=== PATIENT | male | born 1950 | race Caucasian/White ===

== ENCOUNTER 2020-01-05 16:47 | Inpatient (IN) | payer OTHER ==
[~2020-01-05 16:47] MED LIST: Iopamidol-370 76% 500 ML 1 ML ONE
[2020-01-05 17:21] LABS: #Basophils 0.1 thou/uL (0.0-0.2); #Eosinphils 0.2 thou/uL (0.0-0.7); #Lymphocytes 4.6 thou/uL (1.20-3.40); #Monocytes 0.8 thou/uL (0.11-0.59); #Neutrophils 7.9 thou/uL (1.40-6.50); %Basophils 0.6 % (0.0-1.0); %Eosinophils 1.7 % (0.0-10.0); %Lymphocytes 33.8 % (21.0-51.0); %Monocytes 5.7 % (0.0-10.0); %Neutrophils 58.3 % (42.0-75.0); Hemoglobin 15.5 g/dL (14.0-18.0); Mean Corpuscular HGB CONC 33.4 g/dL (32.0-36.0); Mean Corpuscular Hemoglobin 32.3 pg (27.0-31.0); Mean Corpuscular Volume 96.7 fL (78.0-98.0); Mean Platelet Volume 6.9 fL (7.4-10.4); Platelet Count 385 thou/uL (130-400); RBC Distribution Width 13.2 % (11.5-14.5); White Blood Cell (WBC) Count 13.5 thou/uL (4.8-10.8)
[2020-01-05] MEDS ORDERED: Morphine 4 MG/ML VIAL ONE ×2 (17:41→19:49)
[2020-01-05] MEDS ORDERED: Ondansetron PF 4 MG/2 ML Vial ONE (17:41)
[2020-01-05 17:45] LABS: ALT (SGPT) 10 U/L (8-55); AST (SGOT) 11 U/L (5-34); Albumin 4.4 g/dL (3.4-4.8); Alkaline Phosphatase 125 U/L (40-110); Anion Gap 13 mmol/L (10-20); BUN (Urea Nitrogen) 9 mg/dL (8.4-25.7); Bilirubin, Total 0.4 mg/dL (0.2-1.2); CK (CPK) 46 U/L (30-200); Calc. Creatinine Clearance 0 mL/min (70-130); Calcium 9.5 mg/dL (7.8-10.44); Carbon Dioxide 24 mmol/L (23-31); Chloride 105 mmol/L (98-107); Estimated GFR-MDRD 88; Globulin 3.3 g/dL (2.4-3.5); Glucose 103 mg/dL (80-115); Lipase 220 U/L (8-78); Protein, Total 7.7 g/dL (5.8-8.1); Sodium 139 mmol/L (136-145)
--- NOTE | 2020-01-05 17:54 | RAD ---
PORTABLE UPRIGHT FRONTAL CHEST RADIOGRAPH: Date: 01/05/2020 COMPARISON: 02/06/2013. HISTORY: Chest pain. FINDINGS: Stable increased linear interstitial density and pulmonary hyperinflation. No pneumothorax, pleural f luid, focal consolidation, or alveolar edema. IMPRESSION: No significant interval change. POS: TEO
--- NOTE | 2020-01-05 19:00 | CT ---
CT PULMONARY ANGIOGRAPH WITH IV CONTRAST AND 3D MIP RECONSTRUCTIONS: 01/05/20 PROVIDED CLINICAL HISTORY: Chest pain. FINDINGS: There is no evidence for central or segmental pulmonary embolus. Extensive atherosclerosis is demonst rated including coronary calcium. Evaluation of the lung parenchyma is limited by patient respiratory motion. No focal consolidation, pleural fluid, or pneumothorax apparent. The airway appears patent and of normal caliber. There is partially visualized fat stranding changes seen about the pancreatic body. There is reflux o f contrast material into the hepatic veins. Numerous calcified splenic granulomata are seen. Exophyt ic left renal hypodensity is incompletely characterized in the absence of IV contrast but statistical ly reflects a cyst. The osseous structures demonstrate no concerning lytic or blastic lesions. IMPRESSION: 1. No evidence for central or segmental pulmonary embolus. 2. Findings compatible with acute pancreatitis. 3. Atherosclerosis including coronary calcium. POS: SAMEERA
[2020-01-05 20:09] LABS: Bilirubin Negative (Negative); Blood, Urine Negative (Negative); Clarity Clear (Clear); Glucose, Urine (Dipstick) Normal (Negative); Ketone, Urine Negative (Negative); Leukocyte Negative Leu/uL (Negative); Nitrite Negative (Negative); Protein, Urine (Dipstick) Negative (Neg-Trace); Urobilinogen Normal mg/dL (Less than 2); pH, Urine 7.5 (5.0-9.0)
[2020-01-05 20:10] LABS: Specific Gravity, Urine 1.045 (1.002-1.036)
--- NOTE | 2020-01-05 20:31 | CT ---
CT OF THE ABDOMEN AND PELVIS: 01/05/20 COMPARISON: None. HISTORY: Epigastric pain. TECHNIQUE: Axial CT imaging at 5 mm intervals from the lung bases through the pubic symphysis with IV contrast. Coronal and sagittal reformatted imaging obtained. FINDINGS: Calcified granulomata are noted within the right lung base and throughout the spleen. No free intrape ritoneal air is noted. Coronary arterial calcification is present. There is an ill-defined hyperenhancing focus within the peripheral aspect of the right lobe of the li zac anteriorly, likely on the basis of a vascular phenomenon. There is a focal area of branching hypodensity within the anterior aspect of the liver, which could r epresent a small focal area of biliary dilatation. The gallbladder appears grossly unremarkable. The pancreas appears ill-defined with pancreatic ductal dilatation in its mid portion and distal port ion, including the pancreatic tail. In the region of the pancreatic body, there is a vague hypodensit y suspicious for a pancreatic mass, best seen on axial image 26 measuring 2.4 cm in transverse dimens ion. There is peripancreatic fat stranding. Bilateral adrenal glands demonstrate no acute findings. There is a small hypodense lesion within the lower pole of the left kidney anteriorly measuring 8 mm, too small to characterize. There is a exophy tic lesion emanating from the lateral left renal mid pole with Hounsfield units of approximately 24, greater than that expected for a simple cyst. This lesion measures 3.7 cm in transverse dimension. There is small volume free fluid within the pelvis. Limited evaluation of the bowel demonstrates no evidence for inflammatory change. The appendix appear s grossly unremarkable. There is extensive atherosclerotic disease involving the abdominal aorta and its branches with multif ocal eccentric noncalcified plaque within the distal thoracic aorta and the proximal abdominal aorta. At the axial level of the diaphragmatic hiatus, the abdominal aorta demonstrates aneurysmal dilatati on measuring 3.9 x 4.1 cm. the infrarenal abdominal aorta demonstrates aneurysmal dilatation measurin g approximately 3.4 x 3.3 cm on axial image 38 and further distally the abdominal aorta measures 3.5 x 3.4 cm just proximal to the bifurcation. No pelvic retroperitoneal or mesenteric lymphadenopathy is noted. Review of the osseous structures demonstrates no worrisome lytic or blastic bone lesions. The re are age indeterminate fractures of the imaged spine which includes anterior wedge compression frac ture at T9, T11, T12, and L1 as well as the superior end plate fracture of L3. IMPRESSION: 1. Vague hypodense lesion in the mid body of the pancreas with adjacent ductal dilatation of the body and tail of the pancreas, suspicious for pancreatic neoplasm. This is closely approximating the superior mesenteric vein and the common hepatic artery. The pancreas just to the left of this is ill -defined and there is peripancreatic fat stranding which could signify superimposed pancreatitis or m alignancy extending into the adjacent peripancreatic fat. 2. Low density lesion within the left kidney, incompletely assessed on this examination. Follow- up ultrasound advised. 3. Extensive atherosclerotic disease with multifocal abdominal aortic aneurysm. 4. Numerous age indeterminate spinal fractures as detailed above. Results called to Dr. Aragon at 6:39 p.m. on 01/05/20. Code SHELBIE POS: TEO
[2020-01-05 21:23] LABS: Lactic Acid 0.9 mmol/L (0.5-2.2)
[2020-01-05 21:27] LABS: CRP (Inflammatory) 0.85 mg/dL (= or < 0.5); Magnesium 1.6 mg/dL (1.6-2.6)
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
[2020-01-05] MEDS: Lactated Ringer's 1,000 ML IV SCH (21:56)
[2020-01-05 22:06] VITALS: BMI 22.4
[2020-01-05] MEDS ORDERED: Ondansetron PF 4 MG/2 ML Vial IVP PRN (22:56)
[2020-01-05] MEDS ORDERED: Ondansetron ODT 4 MG TAB PO PRN (22:56)
[2020-01-06] MEDS: Lactated Ringer's 1,000 ML IV SCH ×4 (02:57→17:45)
[2020-01-06] MEDS ORDERED: Electrolyte Replacement Protoc 1 EACH EACH FS SCH (03:33)
[2020-01-06] MEDS ORDERED: Potassium Chloride 20 MEQ TAB PO SCH (03:45)
[2020-01-06] MEDS ORDERED: Magnesium 2 GM/50 ML 2 GM in Premix Bag 1 BAG IVPB SCH (04:30)
[2020-01-06 05:53] LABS: #Basophils 0.1 thou/uL (0.0-0.2); #Eosinphils 0.3 thou/uL (0.0-0.7); #Monocytes 0.8 thou/uL (0.11-0.59); #Neutrophils 5.6 thou/uL (1.40-6.50); %Basophils 0.7 % (0.0-1.0); %Eosinophils 3.1 % (0.0-10.0); %Lymphocytes 36.9 % (21.0-51.0); %Monocytes 7.7 % (0.0-10.0); %Neutrophils 51.6 % (42.0-75.0); Hemoglobin 13.5 g/dL (14.0-18.0); Mean Corpuscular HGB CONC 32.7 g/dL (32.0-36.0); Mean Corpuscular Hemoglobin 31.7 pg (27.0-31.0); Mean Platelet Volume 7.1 fL (7.4-10.4); Platelet Count 337 thou/uL (130-400); RBC Distribution Width 13.3 % (11.5-14.5); Red Blood Cell (RBC) Count 4.25 mill/uL (4.70-6.10); White Blood Cell (WBC) Count 10.9 thou/uL (4.8-10.8)
[2020-01-06 06:14] LABS: ALT (SGPT) 8 U/L (8-55); AST (SGOT) 9 U/L (5-34); Albumin 3.5 g/dL (3.4-4.8); Alkaline Phosphatase 105 U/L (40-110); Anion Gap 11 mmol/L (10-20); BUN (Urea Nitrogen) 5 mg/dL (8.4-25.7); Bilirubin, Total 0.4 mg/dL (0.2-1.2); Calc. Creatinine Clearance 103 mL/min (70-130); Calcium 8.5 mg/dL (7.8-10.44); Carbon Dioxide 21 mmol/L (23-31); Chloride 108 mmol/L (98-107); Estimated GFR-MDRD Greater than 90; Globulin 2.7 g/dL (2.4-3.5); Glucose 116 mg/dL (80-115); Potassium 3.1 mmol/L (3.5-5.1); Protein, Total 6.2 g/dL (5.8-8.1); Sodium 137 mmol/L (136-145); Triglycerides 126 mg/dL (Less than 150)
[2020-01-06] MEDS: Enoxaparin Sodium 40 MG/0.4 ML SYRINGE SC SCH (07:56)
[2020-01-06] MEDS: Morphine 2 MG/ML VIAL SLOW IVP PRN (11:00)
[2020-01-06 12:02] LABS: SARS-CoV-2 MS2 Positive; SARS-CoV-2 N Gene Negative; SARS-CoV-2 S Gene Negative; SARS-CoV-2 by NAA Not Detected (NotDetected); SARS-CoV-2 orf1ab Negative
--- NOTE | 2020-01-06 12:38 | PDOC.HOSPP ---
- Subjective Encounter Date: 01/06/20 Encounter Time: 07:00 Subjective: Pt seen for follow-up regarding pancreatic mass. He denies fevers or chills. Reports epigastric pain is better. - Objective Vital Signs & Weight: Vital Signs (12 hours) Temp Pulse Resp BP Pulse Ox 01/06/20 10:00 97.8 F 67 16 154/79 H 99 01/06/20 08:00 97.8 F 67 16 154/79 H 99 01/06/20 07:19 97.9 F 65 18 133/73 97 01/06/20 04:43 97.4 F L 60 16 128/76 93 L 01/06/20 00:47 97.8 F 57 L 16 126/62 95 Weight Admit Weight 156 lb 3.2 oz Weight 156 lb 3.2 oz I&O: 01/05/20 01/06/20 01/07/20 06:59 06:59 06:59 Intake Total 2900 Output Total 2350 Balance 550 Result Diagrams: 01/06/20 05:11 01/06/20 05:11 Additional Labs: I reviewed patient's labs and [facility] Hospitalist ROS - Review of Systems Cardiovascular: denies: chest pain, palpitations, orthopnea, paroxysmal noc. dyspnea, edema, light headedness Gastrointestinal: reports: nausea, abdominal pain. denies: vomiting, diarrhea, constipation, melena, hematochezia - Medication Medications: Active Medications Generic Name Dose Route Start Last Admin Trade Name Freq PRN Reason Stop Dose Admin Enoxaparin Sodium 40 mg 01/06/20 09:00 01/06/20 07:56 Enoxaparin Sodium 40 Mg/0.4 Ml Syringe SC 40 mg 09 BEN Administration Lactated Ringer's 1,000 mls @ 200 mls/hr 01/05/20 20:45 01/06/20 11:16 Lactated Ringer's IV 1,000 mls .Q5H BEN Administration Morphine Sulfate 2 mg 01/06/20 10:49 01/06/20 11:00 Morphine 2 Mg/Ml Vial SLOW IVP 2 mg Q4H PRN Administration Moderate Pain (4-6) - Exam General Appearance: awake alert Eye: anicteric sclera ENT: normocephalic atraumatic Neck: supple Heart: RRR Respiratory: CTAB Gastrointestinal: soft, non-tender, no guarding, no rigidity, tender to palp ation Extremities: no cyanosis Skin: no rashes Psychiatric: normal affect, normal behavior Hosp A/P - Plan - Plan (2) Pancreatic mass Status: Acute (1) Acute pancreatitis Code(s): K85.90 - ACUTE PANCREATITIS WITHOUT NECROSIS OR INFECTION, UNSP Statu s: Acute (4) Hypokalemia Code(s): E87.6 - HYPOKALEMIA Status: Acute (5) Hypertension Code(s): I10 - ESSENTIAL (PRIMARY) HYPERTENSION Status: Chronic (6) Hyperlipidemia Code(s): E78.5 - HYPERLIPIDEMIA, UNSPECIFIED Status: Chronic (7) Post traumatic stress disorder (PTSD) Code(s): F43.10 - POST-TRAUMATIC STRESS DISORDER, UNSPECIFIED Status: Chronic (8) Hypothyroidism Code(s): E03.9 - HYPOTHYROIDISM, UNSPECIFIED Status: Chronic - Plan Plan: Acute pancreatitis: 69M hx of CAD, hypothyroidism, HTN, HLD, PTSD who presents with 3 weeks of subacute epigastric pain found to have acute pancreatitis. Lipase elevated to 220. CT a/p showed acute pancreatitis with fat-stranding as well as a pancreatic mass concerning for malignancy. LFTs show elevated alk phos to 125. AST/ALT /. T. cheryl 0.4. Pt denies history of gallstones or etoh use. HD stable. Continue IV fluids and PRN IV morphine. PLAN: -IVF @ 200cc/hr -NPO, may start clears in am -Pain control with morphine -RUQUS to evaluate for stone -Igg 1-4, Triglycerides Pancreatic Mass: CT a/p showed signs of acute pancreatitis with fat stranding as well as a 2.4 cm mass. Spleen with calcified granulomas - question if these are microemboli. Given pt's early satiety, unintentional weight loss, and family hx of pancreatic cancer concern for malignancy. Will consult GI. PLAN: -GI consult Chest pain: P/w chest/epigastric pain for 3 weeks. Most likely 2/2 pancreatitis, however pt has history of prior IA's with cardiac stents. Initial troponin 0.01. EKG showed non-specific t-wave changes. Will trend troponins. PLAN: -Trend troponin -Telemetry -ASA Leukocytosis: WBC elevated to 13.5. Likely reactive. Lactic acid 0.9. Pt afebrile, VSS. UA negative. CT chest with no signs of pneumonia. Will continue to monitor. PLAN: -Trend WBCs, fever curve -Monitor for signs of infection Hypokalemia: Potassium 3.0 on admission. Will replete and continue to monitor. AAA: CT a/p revealed a 3.9 x 4.1 CM AAA. Patient will need outpatient follow-up for continued monitoring. Hypothyroidism: Continue home levothyroxine once dose confirmed PTSD/Depression: Continue home sertraline 100 mg. Mood is stable. HTN: Continue home losartan and diltiazem once dosages confirmed. DVT prophylaxis: lovenox FULL CODE
[2020-01-06] MEDS ORDERED: Sodium Chloride 0.9% 1,000 ML IV SCH (12:45)
--- NOTE | 2020-01-06 19:56 | CON ---
DATE OF CONSULTATION: 01/06/2020 REASON FOR CONSULTATION: Pancreatitis, abnormal CAT scan. HISTORY OF PRESENT ILLNESS: Mr. Brown is a 69-year-old, who came to the hospital last night for upper abdominal pain and chest pain. He reports that the pain has come and gone over the past three weeks, radiating to the upper chest and left lower chest. He tried taking his nitroglycerin at home which he has, which he usually takes a couple of nitroglycerin and his chest pain would go away, but he had taken 7 and it he did not improve. Nothing really makes the pain better. Often when he eats, he feels a little bit of discomfort and he has not been having much of an appetite recently. [facility], [facility] with an E[facility] and he was told it did not appear to be cardiac pain. He has had no nausea or vomiting. He denies any shortness of breath or dyspnea on exertion. There is no fever or chills. For the heart disease, he had a stent placed in 2011. He does take nitroglycerin occasionally for chest discomfort, but used to go away very quickly. He has also had a weight loss of 25 to 30 pounds over the past 3 to 4 months. He reports decreased appetite. He does see some blood in his stool, streaks at times. He has had colonoscopies several over the past years, most recently 4 years ago with some polyps removed. This was performed at the [facility] in [place]. PAST MEDICAL HISTORY: Coronary artery disease with previous stent placement at the [facility]. Reports history of mild heart failure, hypertension, hyperlipidemia, hypothyroidism, reflux, polyps, PTSD, anxiety, and depression. PAST SURGICAL HISTORY: Previous surgical interventions include heart stent. He also reports that he had colonoscopies about 3 of them and he had an EGD many years ago for his reflux. SOCIAL HISTORY: The patient does not use drugs. Former smoker. Does not drink. Spouse at the bedside. ALLERGIES: LISINOPRIL AND METOPROLOL. MEDICATIONS: At home; 1. Diltiazem. 2. Losartan. 3. Levothyroxine. 4. Sertraline. Medications here; 1. Lovenox. 2. LR at 75. 3. Morphine p.r.n. 4. Zofran p.r.n. PHYSICAL EXAMINATION: VITAL SIGNS: Temperature 97, pulse 67, blood pressure 158/79. GENERAL: He is resting in bed. He is in no overt distress. HEENT: Oropharynx without lesions. NECK: Supple without adenopathy. Thyroid without masses or lesions. No supraclavicular or infraclavicular adenopathy. There is no overt muscle wasting in the upper extremities. Pulses are equal bilaterally. HEART: Regular rate and rhythm without clicks or murmurs. ABDOMEN: Soft and nondistended. There are bowel sounds. There is no rebound or guarding. There is mild epigastric tenderness. There is no palpable hepatosplenomegaly. He has no evidence of inguinal hernias. There is no evidence of umbilical nodes or inguinal adenopathy. EXTREMITIES: Reveal no clubbing, cyanosis, or edema. LABORATORY STUDIES: White count was 13 yesterday, 10.9 today; hemoglobin is 15.5 yesterday, 13.5 today; platelet count 336. Sodium 137, potassium 3.1, BUN and creatinine are 5 and 0.67, these were 9 and 0.86 yesterday. Liver function tests normal. Alkaline phosphatase is 125 yesterday, 105 today. Lipase is 220 yesterday, 127 today. Triglycerides 126, albumin 3.5. SARS-COVID negative. IMAGING STUDIES: I have reviewed these myself. Chest x-ray was normal. CAT scan of the chest showed no evidence of PE. There is calcium in the coronary arteries. CT abdomen and pelvis reveals ill-defined mass in the midportion of the pancreatic duct closer to the head with proximal pancreatic duct dilatation, a small hypodensity in the anterior aspect of the liver of unclear etiology, and ill-defined hyperenhancing focus in the perihilar aspect of the right lobe of the liver. The liver lesion is 2.4 cm in size. There is peripancreatic stranding. ASSESSMENT: 1. Admission with epigastric pain, history of weight loss, mild pancreatitis by labs and symptoms, and a CAT scan with a mass in the pancreas midbody with proximal ductal dilatation. This is suspicious for a pancreatic neoplasia and pancreatic duct obstruction, which has probably caused a mild pancreatitis. 2. Pancreatitis seems to be improving. There are no overt signs of necrosis. RECOMMENDATIONS: This patient needs an endoscopic ultrasound with biopsy of the pancreatic lesion. I would first try to transfer him to the [facility] in [place], where this could be expedited as the other options let his pancreatitis to calm down, get him back to [facility] here and then refer there for that study as the study is not available at this hospital. My concern is that in the process of trying to get him an outpatient study, he may very well end up back in the hospital with pancreatitis again. I talked with the hospitalist about this, they are going to try to proceed to transfer to [place]. We will follow with you. Job ID: [id number]
[2020-01-07] MEDS: Lactated Ringer's 1,000 ML IV SCH (06:41)
[2020-01-07 06:44] LABS: Anion Gap 15 mmol/L (10-20); BUN (Urea Nitrogen) 6 mg/dL (8.4-25.7); Calc. Creatinine Clearance 92 mL/min (70-130); Carbon Dioxide 21 mmol/L (23-31); Chloride 105 mmol/L (98-107); Estimated GFR-MDRD Greater than 90; Glucose 99 mg/dL (80-115); Lipase 223 U/L (8-78); Potassium 3.3 mmol/L (3.5-5.1); Sodium 138 mmol/L (136-145)
--- NOTE | 2020-01-07 07:22 | ULT ---
RIGHT UPPER QUADRANT ULTRASOUND: Date: 01/06/2020 PROVIDED CLINICAL HISTORY: Abdominal pain. FINDINGS: There is a hypodense mass in the pancreas measuring at least 3.9 cm. The liver demonstrates no mass o r intrahepatic biliary ductal dilatation. The IVC appears normal. The gallbladder demonstrates no sto scott. There is reported positive sonographic Ham's sign and a small amount of pericholecystic fluid . The gallbladder wall is mildly thickened. The common duct is not dilated. The right kidney demonstr ates no evidence for hydronephrosis or mass. IMPRESSION: 1. Hypoechoic pancreatic head mass measuring at least 3.9 cm, suspicious for pancreatic adenocarcino ma. 2. Gallbladder wall thickening, pericholecystic fluid, and positive sonographic Ham's sign in the absence of gallstones. If there is concern for acalculous cholecystitis, consider HIDA scan. POS: SAMEERA
[2020-01-07] MEDS: Enoxaparin Sodium 40 MG/0.4 ML SYRINGE SC SCH (07:49)
[2020-01-07 08:40] LABS: Immunoglobulin - G (Sendout) 1023 mg/dL (603-1613)
[2020-01-07] MEDS: Potassium Chloride 20 MEQ in Premix Bag 1 BAG IVPB SCH ×2 (08:53→12:44)
[2020-01-07] MEDS ORDERED: Pantoprazole 40 MG VIAL IVP SCH (09:00)
--- NOTE | 2020-01-07 12:30 | PRG ---
DATE OF SERVICE: 01/07/2020 SUBJECTIVE: Mr. Brown is feeling okay. He still has epigastric abdominal pain. He is tolerating some clear liquids today. Drinking only causes some mild aggravation of the discomfort. He has remained hemodynamically stable and does not have any other complaints. OBJECTIVE: VITAL SIGNS: Temperature 98.4, pulse 80, blood pressure 143/85, 96% oxygen saturation on room air. GENERAL: No acute distress. HEART: Regular rate and rhythm. LUNGS: Clear to auscultation bilaterally. ABDOMEN: Nondistended. Bowel sounds are present. Soft. Some tenderness to palpation in the epigastrium, but no guarding or rebound tenderness. EXTREMITIES: No peripheral edema. LABORATORY STUDIES: WBC 10.9, hemoglobin 13.5, platelets 337. Sodium 138, potassium 3.3, BUN 6, creatinine 0.75. Lipase 223. LFTs normal with total bilirubin 0.4, alkaline phosphatase 105, AST 9, ALT 8. CRP 0.85. IgG subclasses are pending. COVID is negative. ASSESSMENT AND PLAN: 1. Pancreatic mass, measuring 2.[address], with associated pancreatic ductal dilation. 2. Mild pancreatitis, likely secondary to pancreatic mass. 3. Family history of pancreatic cancer in his brother. Agree with Dr. Hill recommendation from yesterday. The patient is going to need transfer to a tertiary center for endoscopic ultrasound with biopsy of the pancreatic lesion. I do think inpatient transfer would be reasonable, rather than trying to arrange this on an outpatient basis, in the interest of expediting his workup and given his continued symptoms. I will check with the transfer center on the status of this. Really nothing further that we can offer from a Gastroenterology perspective here. He can continue with clear liquids in the meantime. Job ID: [id number]
[2020-01-07] MEDS: Morphine 2 MG/ML VIAL SLOW IVP PRN ×2 (12:45→19:04)
[2020-01-07 17:01] VITALS: TEMP 98.3
--- NOTE | 2020-01-07 18:16 | PDOC.HOSPP ---
- Subjective Encounter Date: 01/07/20 Encounter Time: 18:14 Subjective: Patient seen for follow-up regarding pancreatic mass. He denies any new complaints. - Objective Vital Signs & Weight: Vital Signs (12 hours) Temp Pulse Resp BP Pulse Ox 01/07/20 16:00 98.3 F 77 20 158/80 H 97 01/07/20 11:00 98.4 F 80 20 143/85 H 96 01/07/20 08:00 97 01/07/20 07:29 98.4 F 77 20 156/69 H 97 Weight Admit Weight 156 lb 3.2 oz Weight 156 lb 3.2 oz I&O: 01/06/20 01/07/20 01/08/20 06:59 06:59 06:59 Intake Total 2900 Output Total 2350 300 Balance 550 -300 Result Diagrams: 01/06/20 05:11 01/07/20 05:58 Additional Labs: I reviewed patient's labs and MAR Hospitalist ROS - Review of Systems Cardiovascular: denies: chest pain, palpitations, orthopnea, paroxysmal noc. dyspnea, edema, light headedness Gastrointestinal: reports: abdominal pain. denies: nausea, vomiting, diarrhea, constipation, melena, hematochezia - Medication Medications: Active Medications Generic Name Dose Route Start Last Admin Trade Name Freq PRN Reason Stop Dose Admin Enoxaparin Sodium 40 mg 01/06/20 09:00 01/07/20 07:49 Enoxaparin Sodium 40 Mg/0.4 Ml Syringe SC 40 mg 0900 BEN Administration Lactated Ringer's 1,000 mls @ 75 mls/hr 01/06/20 12:45 01/07/20 06:41 Lactated Ringer's IV 1,000 mls .[id number] BEN Administration Morphine Sulfate 2 mg 01/06/20 10:49 01/07/20 12:45 Morphine 2 Mg/Ml Vial SLOW IVP 2 mg Q4H PRN Administration Moderate Pain (4-6) Pantoprazole Sodium 40 mg 01/07/20 09:00 01/07/20 07:50 Pantoprazole 40 Mg Vial IVP 40 mg DAILY BEN Administration - Exam General Appearance: awake alert Eye: anicteric sclera ENT: moist mucosa Neck: supple Heart: RRR Respiratory: CTAB Gastrointestinal: soft, non-tender Extremities: no cyanosis Skin: no rashes Musculoskeletal: no muscle wasting Psychiatric: normal affect, normal behavior Hosp A/P - Plan -Assessment (1) Pancreatic mass Status: Acute (2) Acute pancreatitis Code(s): K85.90 - ACUTE PANCREATITIS WITHOUT NECROSIS OR INFECTION, UNSP Status: Acute (3) Hypokalemia Code(s): E87.6 - HYPOKALEMIA Status: Acute (4) Hypertension Code(s): I10 - ESSENTIAL (PRIMARY) HYPERTENSION Status: Chronic (5) Hyperlipidemia Code(s): E78.5 - HYPERLIPIDEMIA, UNSPECIFIED Status: Chronic (6) Post traumatic stress disorder (PTSD) Code(s): F43.10 - POST-TRAUMATIC STRESS DISORDER, UNSPECIFIED Status: Chronic (7) Hypothyroidism Code(s): E03.9 - HYPOTHYROIDISM, UNSPECIFIED Status: Chronic - Plan Plan: Pancreatic Mass: GI service discussed with 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 I also discussed with the hospitalist at the facility. Patient to be transferred there for endoscopic ultrasound. Acute pancreatitis: Continue pain medications and intravenous fluids. Hypokalemia: Replace potassium. Hypothyroidism: Continue home levothyroxine once patient is able to take oral medications. PTSD/Depression: Continue home sertraline 100 mg. Mood is stable. HTN: Continue home losartan and diltiazem
[2020-01-07 19:43] VITALS: BP 168/89
[2020-01-08] MEDS ORDERED: Levothyroxine Sodium 100 MCG TAB PO SCH (06:00)
--- NOTE | 2020-01-09 03:21 | DIS ---
DATE OF ADMISSION: 01/05/2020 DATE OF DISCHARGE: 01/07/2020 PRIMARY CARE PROVIDER: [facility] in [place]. DISCHARGE DIAGNOSES: 1. Pancreatic mass. 2. Acute pancreatitis. 3. Hypokalemia. 4. COVID-19 test negative. CONDITION OF PATIENT ON THE DAY OF DISCHARGE: Stable. I assessed Mr. Brown on the day of discharge. Please refer to my daily progress note for details regarding this [id number] encounter. CONSULTATIONS DURING THIS HOSPITALIZATION: Gastroenterology, Dr. Hill. HOSPITAL COURSE: Mr. Brown is a pleasant 69-year-old gentleman, who was admitted to [facility] on January 05, 2020, for pancreatic mass and acute pancreatitis. He was seen by Gastroenterology Service. He received intravenous fluids and pain medications. He started improving clinically. Gastroenterology Service recommended transfer to [facility] in [place] for endoscopic ultrasound-guided pancreatic biopsy. The patient was accepted to [facility] on the evening of January 07, 2020, and was discharged there. POST ACUTE CARE FOLLOWUP: Diet and activity: Per [facility] in [place]. DISCHARGE DESTINATION: [facility] in [place]. TIME SPENT: Total amount of time spent coordinating this discharge: 32 minutes. Job ID: [id number]
[2020-01-09 05:37] LABS: IgG Subclass 2 298 mg/dL (130-555); IgG Subclass 3 74 mg/dL (15-102)
== END 2020-01-07 19:58 | disposition short-term general hospital (02) | DRG 440 ==
LOC: ERS 16:47 → T4-A 19:46
PROVIDERS: ADMIT Internal Medicine; ATTEND Internal Medicine
DX: K85.90 Acute pancreatitis without necrosis or infection, unspecified (principal); K86.89 Other specified diseases of pancreas; I25.10 Atherosclerotic heart disease of native coronary artery without angina pectoris; I10 Essential (primary) hypertension; E78.5 Hyperlipidemia, unspecified; E03.9 Hypothyroidism, unspecified; K21.9 Gastro-esophageal reflux disease without esophagitis; F43.10 Post-traumatic stress disorder, unspecified; F41.9 Anxiety disorder, unspecified; I71.4 Abdominal aortic aneurysm, without rupture; F32.9 Major depressive disorder, single episode, unspecified; F17.210 Nicotine dependence, cigarettes, uncomplicated; Z95.5 Presence of coronary angioplasty implant and graft; I25.2 Old myocardial infarction; Z80.0 Family history of malignant neoplasm of digestive organs; Z88.8 Allergy status to other drugs, medicaments and biological substances
CPT/HCPCS: 36415; 71045; 71275; 74177; 76705; 80048; 80053; 81003; 82550; 82787; 83605; 83690; 83735; 84478; 84484; 85025; 86140; 87635; 93005; 94760; 96374; 96375; 96376; C9113; J1650; J2270; J2405; J3475; J3480; Q9967; U0003